=== PATIENT | female | born 1985 ===

== ENCOUNTER 2019-11-06 23:00 | Emergency (ER) | payer SELFPAY ==
[2019-11-06 23:05] VITALS: BP 138/88; PULSE 89; RESP 18; O2SAT 97; BMI 28.0
[2019-11-06] MEDS: diphenhydrAMINE 50 MG/ML VIAL 25 MG IV (23:22)
[2019-11-06] MEDS: methylPREDNISolone 125 MG/2 ML VIAL IV (23:25)
[2019-11-06] MEDS: EPINEPHrine 1 MG/ML 0.5 MG IM (23:26)
[2019-11-06] MEDS: FAMOTIDINE 20 MG/50 ML PIGGYBACK 200 MG IV (23:30)
[2019-11-06] MEDS: SODIUM CHLORIDE 0.9% 1,000 ML 1000 ML IV (23:37)
--- NOTE | 2019-11-07 00:20 | ED_ITS ---
HPI - Allergic Reaction General Chief complaint: Allergic Reaction Stated complaint: rash on her torso and neck Time Seen by Provider: 11/06/19 23:02 Source: patient Mode of arrival: Ambulatory Limitations: no limitations History of Present Illness HPI narrative: 34-year-old female nonsmoker with benign medical history presents with her and in the chief complaint of gradually worsening widespread hives most notable on chest, abdomen and back since this afternoon. She denies any swelling of tongue, lips, face or throat. She has no trouble swallowing and no difficulty in breathing. She does not have a strong history of allergic reactions and has never had this type of reaction before. She denies any new new exposures such as food, lotion, soap, pets, bending versus other. She did not take any medications home MD complaint: allergic reaction and hives Onset (ago): hour(s) Exposure: unknown Symptoms: rash and itching Severity: moderate Treatment prior to arrival: none Previous Allergic Reaction History: none Related Data Previous Rx's Medication Instructions Recorded epinephrine [EpiPen 2-Cuate] 0.3 mg IM Q5-15M PRN #2 each 11/07/19 prednisone 20 mg PO DAILY #5 tab 11/07/19 Allergies Allergy/AdvReac Type Severity Reaction Status Date / Time No Known Drug Allergies Allergy Verified 11/07/19 01:40 Review of Systems Constitutional Constitutional: Denies chills, Denies fatigue, Denies fever(s), Denies frequent falls, Denies lethargy and Denies weakness Eyes Eyes: Denies change in vision, Denies eye discharge, Denies irritation and Denies loss of vision ENT Ears, Nose, Mouth, and Throat: Denies change in voice, Denies dizziness, Denies neck pain, Denies sore throat and Denies throat swelling Cardiovascular Cardiovascular: Denies chest pain, Denies irregular heart rhythm, Denies lightheadedness, Denies palpitations, Denies dyspnea, Denies dyspnea on exertion and Denies orthopnea Respiratory Respiratory: Denies cough, Denies dyspnea, Denies dyspnea on exertion and Denies wheezing Gastrointestinal Gastrointestinal: Denies abdominal pain, Denies change in bowel habits, Denies diarrhea, Denies nausea and Denies vomiting Musculoskeletal Musculoskeletal: Denies neck pain and Denies numbness Integumentary/Breasts Skin/Breast: Reports pruritus, Denies erythema, Reports rash, Reports skin swelling and Denies wounds Neurologic Neurologic: Denies behavioral changes, Denies confusion, Denies dizziness, Denies frequent falls, Denies loss of vision, Denies numbness and Denies weakness Psychiatric Psychiatric: Denies anxiety, Denies behavioral changes, Denies confusion, Denies depression, Denies homicidal ideation and Denies suicidal ideation Endocrine Endocrine: Denies fatigue, Denies flushing and Denies palpitations Hematologic/Lymphatic Hematologic/Lymphatic: Denies easy bruising Allergic/Immunologic Allergic/Immunologic: Reports urticaria, Denies throat swelling and Denies wheezing Patient History Social History Smoking Status: Never smoker Smoking Status: Never smoker Substance Use Type: does not use Exam Narrative Exam Narrative: GENERAL: [34] year old patient appears stated age. Well- nourished, well-developed patient, in mild distress. Anxious HEAD: Atraumatic. Normocephalic. EYES: Pupils equal round and reactive. Extraocular motions intact. No scleral icterus. No injection or drainage. ENT: No tongue, lip, face or throat swelling Nose without bleeding, purulent drainage. Throat without erythema, tonsillar hypertrophy or exudate. Airway patent. NECK: Trachea midline. Non tender CARDIOVASCULAR: Regular rate and rhythm without murmurs, gallops, or rubs. RESPIRATORY: Clear to auscultation. Breath sounds equal bilaterally. No wheezes, rales, or rhonchi. GASTROINTESTINAL: Abdomen soft, non-tender, nondistended. EXTREMITIES: No edema or joint tenderness. BACK: Nontender without deformity or crepitance. No flank tenderness. NEURO: AOx3. SKIN: Widespread urticaria including anterior chest, back, abdomen and extremities Initial Vital Signs Initial Vital Signs: Vital Signs Pulse Rate 89 11/06/19 23:05 Respiratory Rate 18 11/06/19 23:05 Blood Pressure 138/88 11/06/19 23:05 Pulse Oximetry 97 11/06/19 23:05 Course Course Course Narrative: Patient had a near complete resolution of symptoms with above- stated therapies. She did have some intolerance to the epinephrine and got a bit anxious and restless for a few minutes after is administration. That has since resolved Patient continues to have no allergy type symptoms but his developed significant nausea and a headache. She has been given some Toradol and Reglan without much in the way of resolution of her symptoms, due to ongoing vomiting and sudden onset of headache patient is now given Zofran and a head CT ordered Orders Ordered: ED Orders 11/06/19 23:40 EKG-12 Lead Routine 11/07/19 02:46 CT head/brain wo con Stat Discontinued Medications Diphenhydramine HCl (Benadryl) 25 mg IV NOW ONE Stop: 11/06/19 23:18 Last Admin: 11/06/19 23:22 Dose: 25 mg Documented by: DAVIE Epinephrine HCl (Adrenalin) 0.5 mg IM NOW ONE Stop: 11/06/19 23:18 Last Admin: 11/06/19 23:26 Dose: 0.5 mg Documented by: DAVIE Famotidine (Pepcid) 20 mg in 50 mls @ 200 mls/hr IV NOW ONE Stop: 11/06/19 23:31 Last Infusion: 11/06/19 23:50 Dose: 0 mls/hr Documented by: Admin: 11/06/19 23:30 Dose: 200 mls/hr Documented by: PHIL Sodium Chloride (Normal Saline 0.9%) 1,000 mls @ 1,000 mls/hr IV BOLUS ONE Stop: 11/07/19 00:16 Last Infusion: 11/07/19 00:37 Dose: 0 mls/hr Documented by: Admin: 11/06/19 23:37 Dose: 1,000 mls/hr Documented by: MMCFARL Sodium Chloride (Normal Saline 0.9%) 1,000 mls @ 1,000 mls/hr IV BOLUS PRN PRN Reason: Fluid replacement Last Infusion: 11/07/19 02:04 Dose: 0 mls/hr Documented by: Admin: 11/07/19 00:35 Dose: 1,000 mls/hr Documented by: DAVIE Ketorolac Tromethamine (Toradol) 15 mg IV NOW ONE Stop: 11/07/19 01:56 Last Admin: 11/07/19 02:01 Dose: 15 mg Documented by: DAVIE Methylprednisolone (Solu-Medrol 125 Mg Vial) 125 mg IV NOW ONE Stop: 11/06/19 23:18 Last Admin: 11/06/19 23:25 Dose: 125 mg Documented by: MMCFARL Metoclopramide HCl (Reglan) 10 mg IV NOW ONE Stop: 11/07/19 01:57 Last Admin: 11/07/19 02:02 Dose: 10 mg Documented by: CONNORFARL Ondansetron HCl (Zofran) 4 mg IV NOW ONE Stop: 11/07/19 02:47 Last Admin: 11/07/19 02:52 Dose: 4 mg Documented by: PHIL Vital Signs Vital signs: Vital Signs - 8 hr 11/07/19 00:24 11/07/19 01:00 11/07/19 01:30 Pulse Rate 72 74 81 Pulse Rate [Orthostatic Lying] Pulse Rate [Orthostatic Sitting] Pulse Rate [Orthostatic Standing] Respiratory Rate 22 17 16 Blood Pressure Blood Pressure [Left Arm] 95/53 L 91/58 L 100/60 Blood Pressure [Orthostatic Lying] Blood Pressure [Orthostatic Sitting] Blood Pressure [Orthostatic Standing] Pulse Oximetry 97 97 99 11/07/19 01:45 11/07/19 03:00 11/07/19 04:30 Pulse Rate 90 79 75 Pulse Rate [Orthostatic Lying] 79 Pulse Rate [Orthostatic Sitting] 89 Pulse Rate [Orthostatic Standing] 87 Respiratory Rate 21 11 L 14 Blood Pressure 110/56 L Blood Pressure [Left Arm] 119/79 120/81 Blood Pressure [Orthostatic Lying] 98/62 Blood Pressure [Orthostatic Sitting] 99/64 Blood Pressure [Orthostatic Standing] 104/72 Pulse Oximetry 95 96 100 Discharge Plan Departure Patient Disposition: Home Clinical Impression: Urticaria Allergic reaction Qualifiers: Encounter type: initial encounter Qualified Code(s): T78.40XA - Allergy, unspecified, initial encounter Discharge Date/Time: 11/07/19 04:30 Instructions: DI for Hives Activity Restrictions/Additional Instructions: *You have been diagnosed with [allergic reaction with hives to unknown source] *What to do: *Take medications as directed: Take epinephrine and prednisone as directed by the prescription. [id number] antihistamines such as Pepcid can help with itching and skin symptoms as well. Benadryl (diphenhydramine) is highly effective but should be used sparingly if possible while breast-feeding. If your symptoms worsen you will need to take Benadryl, however please note that it can dry your milk supply and with prolonged use it may be passed to her child in breast milk and can have some adverse affects. *Follow up with your primary care provider in 2-3 days, call for an appointment. Let them know you were seen in the Emergency Department and that we ask that you be seen in follow up *Return to ER if you should have any new, worsening or concerning symptoms Prescriptions: New prednisone 20 mg tablet 20 mg PO DAILY Qty: 5 RF: 0 epinephrine [EpiPen 2-Cuate] 0.3 mg/0.3 mL auto-injector 0.3 mg IM Q5-15M PRN (Reason: anaphylaxis) Qty: 2 RF: 0
[2019-11-07 00:24] VITALS: BP 95/53; PULSE 72; RESP 22; O2SAT 97
--- NOTE | 2019-11-07 00:30 | PC.NURSE ---
PT arrives with widespread rash/hives to chest, back, abdomen and bi-lat upper extremities since this afternoon, denies known allergies or cause of symptoms. Speaking in clear sentences, denies difficulty breathing or swallowing, swelling of tongue, lips, face or throat. She has no trouble swallowing and no difficulty in breathing.
[2019-11-07] MEDS: SODIUM CHLORIDE 0.9% 1,000 ML 1000 ML IV (00:35)
[2019-11-07 01:00] VITALS: BP 91/58; PULSE 74; RESP 17; O2SAT 97
[2019-11-07 01:30] VITALS: BP 100/60; PULSE 81; RESP 16; O2SAT 99
[2019-11-07 01:45] VITALS: BP 104/72; BP 119/79; BP 98/62; BP 99/64; PULSE 79; PULSE 87; PULSE 89; PULSE 90; RESP 21; O2SAT 95
[2019-11-07] MEDS: KETOROLAC 60 MG/2 ML VIAL 15 MG IV (02:01)
[2019-11-07] MEDS: METOCLOPRAMIDE 10 MG/2 ML INJ IV (02:02)
--- NOTE | 2019-11-07 02:46 | DI.CT.S_ITS ---
PROCEDURE: CT HEAD/BRAIN WO CON INDICATIONS: severe sudden onset headache, worst ever, vomiting TECHNIQUE: Noncontrast 4.5 mm thick angled axial sections acquired from the foramen magnum to the vertex, with coronal and sagittal reformats. For radiation dose reduction, the following was used: automated exposure control, adjustment of mA and/or kV according to patient size. COMPARISON: None. FINDINGS: Image quality: Excellent. CSF spaces: Basal cisterns are patent. No extra-axial fluid collections. Ventricles are normal in size and shape. Brain: No midline shift. No intracranial masses or hemorrhage. Candelario-white matter interface is normal. Skull and face: Calvarium and visualized facial bones are intact, without suspicious lesions. Sinuses: Visualized sinuses and mastoids are clear. IMPRESSION: No acute intracranial disease process. Dictated by: Winsome Barrera MD, PhD on 11/07/2019 at 7:11 Approved by: Winsome Barrera MD, PhD on 11/07/2019 at 7:13
[2019-11-07] MEDS: ONDANSETRON 4 MG/2 ML INJ IV (02:52)
--- NOTE | 2019-11-07 02:55 | PC.NURSE ---
PT had an episode of vomiting, given 4mg zofran IV ordered.
[2019-11-07 03:00] VITALS: BP 120/81; PULSE 79; RESP 11; O2SAT 96
[2019-11-07 04:30] VITALS: BP 110/56; PULSE 75; RESP 14; O2SAT 100
--- NOTE | 2019-11-07 18:51 | PC.NURSE ---
called the prescription in to [facility] for prednisone that Dr. Mariscal ordered this am. [facility] only had the one prescription for her epi pen. reports that a hard copy of the prednisone was never dispensed to his .
== END 2019-11-07 04:30 | disposition home or self-care (01) ==
PROVIDERS: Emergency Provider Emergency Medicine
DX: T78.40XA Allergy, unspecified, initial encounter (principal); L50.9 Urticaria, unspecified; R07.9 Chest pain, unspecified; R51 Headache
CPT/HCPCS: 36415; 70450; 93005; 96361; 96365; 96372; 96375; 99285; J0171; J1200; J1885; J2405; J2765; J2930

== ENCOUNTER → 2021-08-31 11:38 | Outpatient (CLI) | payer OTHER, SELFPAY ==
[2021-08-31 12:55] LABS: Add Manual Diff / Slide Review NO; Basophils Absolute Auto 100 /uL (0-100); Basophils Percent Auto 0.8 % (0-2); Eosinophils Absolute Auto 100 /uL (0-450); Eosinophils Percent Auto 1.9 % (2-4); Hematocrit 42.4 % (36-46); Hemoglobin 14.4 g/dL (12.0-16.0); Lymphocytes Absolute Auto 2000 /uL (1100-4500); Lymphocytes Percent Auto 32.7 % (25-40); Mean Corpuscular Hemoglobin 27.7 PG (26-34); Mean Corpuscular Volume 81.4 fL (80-100); Monocytes Absolute Auto 400 /uL (0-900); Monocytes Percent Auto 6.1 % (3-14); Neutrophils Absolute Auto 3600 /uL (1500-7000); Neutrophils Percent Auto 58.5 % (50-75); Platelet Count 346 X10^3/uL (150-400); Red Blood Cell Count 5.21 X10^6/uL (4.0-5.2); Red Cell Distribution Width 12.7 % (11.6-14.8); White Blood Cell Count 6.2 X10^3/uL (4.5-11.0)
[2021-08-31 13:16] LABS: Hemoglobin A1C% w Est Avg Glu 5.4 % (4.0-6.0)
[2021-08-31 14:11] LABS: Alanine Aminotransferase 48 IU/L (<35); Albumin 4.6 g/dL (3.5-5.0); Albumin Globulin Ratio 1.5 (1.0-2.8); Alkaline Phosphatase 82 U/L (38-126); Aspartate Aminotransferase 34 IU/L (14-36); BUN Creatinine Ratio 11.5 (6-22); Bilirubin Total 0.5 mg/dL (0.2-1.3); Blood Urea Nitrogen 7 mg/dL (7-17); Calcium 9.2 mg/dL (8.4-10.2); Carbon Dioxide 28 mmol/L (22-32); Chloride 101 mmol/L (98-107); Cholesterol 220 mg/dL (140-199); Estimated Glomerular Filt Rate > 60 mL/min (>60); Glucose 94 mg/dL (70-100); HDL Cholesterol 58 mg/dL (40-60); HEMOLYSIS < 15 (0-50); LDL Cholesterol Calculated 136 mg/dL (<100); Potassium 3.9 mmol/L (3.4-5.1); Sodium 139 mmol/L (137-145); Total Protein 7.6 g/dL (6.3-8.2); Triglycerides 131 mg/dL (35-150)
[2021-08-31 14:34] LABS: TSH w/ Reflex to FT4 1.68 uIU/mL (0.47-4.68)
== END ==
PROVIDERS: PCP Family Medicine; Referring Provider Family Medicine; Visit Provider Family Medicine
DX: E03.9 Hypothyroidism, unspecified (principal); E66.9 Obesity, unspecified
CPT/HCPCS: 36415; 80053; 80061; 83036; 84443; 85025

== ENCOUNTER → 2021-10-19 15:14 | Outpatient (CLI) | payer OTHER, SELFPAY ==
--- NOTE | 2021-10-19 15:15 | DI.US.S_ITS ---
PROCEDURE: US THYROID INDICATIONS: NECK MASS TECHNIQUE: Real-time scanning was performed of the thyroid gland, with image documentation. COMPARISON: None. FINDINGS: Right: Thyroid lobe measures 5.0 x 1.7 x 1.3 cm, and is homogeneous in echotexture. Left: Thyroid lobe measures 7 x 1 x 5.5 x 3.9 cm, and is homogenous in echotexture. Nodule number: 1 Location: Entire left thyroid Size: 7.1 x 5.5 x 3.9 cm. Composition: Solid Echogenicity: Hypoechoic Shape: wider than tall. Margins: Lobulated Echogenic foci: None Total points: 6 ACR TI-RADS category: Moderately suspicious IMPRESSION: Large, moderately suspicious left thyroid nodule. Based on imaging characteristics, size and criteria outlined below ultrasound-guided fine-needle aspiration of the nodule is recommended for additional evaluation. ACR TI-RADS definitions and recommendations: TI-RADS 1 (benign): 0 points. FNA not needed. TI-RADS 2 (not suspicious): 2 points. FNA not needed. TI-RADS 3 (mildly suspicious): 3 points. * FNA if 2.5 cm or larger, follow up if 1.5 cm or larger (at 1, 3, and 5 years). TI-RADS 4 (moderately suspicious): 4-6 points. * FNA if 1.5 cm or larger, follow up if 1 cm or larger (at 1, 2, 3, and 5 years). TI-RADS 5 (highly suspicious): 7 points or more. * FNA if 1 cm or larger, follow up if 0.5 cm or larger (every year for 5 years). Dictated by: Winsome Barrera MD, PhD on 10/19/2021 at 16:31 Approved by: Winsome Barrera MD, PhD on 10/19/2021 at 16:34
== END ==
PROVIDERS: PCP Family Medicine; Referring Provider Family Medicine; Visit Provider Family Medicine
DX: E04.1 Nontoxic single thyroid nodule
CPT/HCPCS: 76536

== ENCOUNTER → 2022-07-11 14:10 | Outpatient (CLI) | payer OTHER, SELFPAY ==
--- NOTE | 2022-07-11 14:11 | DI.US.S_ITS ---
PROCEDURE: US FINE NEEDLE ASPIRATION INDICATIONS: NODULE TECHNIQUE: The indications, alternatives, benefits, risks, and complications of the procedure were explained to the patient. Written informed consent was obtained and placed in the chart. The thyroid region was examined sonographically and a site was chosen for ultrasound guided percutaneous sampling. The skin was prepared and draped in the usual fashion, and anesthetized with 1% lidocaine infiltrated from the skin down to the thyroid gland. Multiple passes were then performed, with contents emptied into an appropriate pathology specimen container. A bandage was applied to the area of access at completion of the study. COMPARISON: [facility], US, US THYROID, 10/19/2021, 16:41. FINDINGS: Location(s) of lesion(s) sampled: Left thyroid mass Cannon: 25 gauge hypodermic needles. Number of passes: 6 Medications: 1% lidocaine for local anaesthesia. Complications: None. IMPRESSION: Successful ultrasound-guided thyroid nodule fine needle aspiration, with cytology results pending. Please see chart below for management recommendations based on cytology results. [facility] ReportingRecommendationsNon-diagnostic* Repeat US-guided FNA, with on-site cytology evaluation if possible. * Repeated non-diagnostic nodules without high suspicion US features: close observation vs surgical consult. * Consider surgery if nodule has high suspicion US features, grows >20% in 2 dimensions on followup, or patient has clinical risk factors for malignancy. Benign* If nodule has high suspicion US features: repeat US and FNA within 12 months. * If nodule has low to intermediate suspicion US features: repeat US at 12-24 months. If nodule grows (20% increase in at least 2 dimensions, with minimal increase of 2 mm or >50% change in volume), or development of new suspicious US features, then repeat FNA or continue followup. * If nodule has very low suspicion US features: followup US at >24 months. Atypia of undetermined significance, follicular lesion of undetermined significanceRepeat FNA, molecular testing, followup US, or surgical consult.Follicular neoplasm, suspicious for follicular neoplasmSurgical consult; also consider molecular testing. Suspicious for malignancySurgical consult.MalignantSurgical consult. Dictated by: Noel Morrow M.D. on 07/11/2022 at 17:11 Approved by: Noel Morrow M.D. on 07/11/2022 at 17:11
== END ==
PROVIDERS: PCP Family Medicine; Referring Provider Family Medicine; Visit Provider Family Medicine
DX: E04.1 Nontoxic single thyroid nodule (principal)
CPT/HCPCS: 10005

== ENCOUNTER → 2024-03-25 09:52 | Outpatient (CLI) | payer OTHER, SELFPAY | PROVIDERS: PCP Family Medicine; Visit Provider Physician Assistant Medical | DX: R30.0 Dysuria (principal); N76.0 Acute vaginitis | CPT/HCPCS: 87086; 87210 ==

== ENCOUNTER → 2024-05-27 09:57 | Outpatient (CLI) | payer OTHER, SELFPAY ==
[2024-05-27 10:19] LABS: Add Manual Diff / Slide Review NO; Basophils Absolute Auto 0 /uL (0-100); Basophils Percent Auto 0.8 % (0-2); Eosinophils Absolute Auto 200 /uL (0-450); Eosinophils Percent Auto 3.7 % (2-4); Hematocrit 42.6 % (36-46); Hemoglobin 13.9 g/dL (12.0-16.0); Lymphocytes Absolute Auto 2400 /uL (1100-4500); Lymphocytes Percent Auto 42.4 % (25-40); Mean Corpuscular HGB Conc 32.7 % (30-36); Mean Corpuscular Hemoglobin 27.3 PG (26-34); Mean Corpuscular Volume 83.5 fL (80-100); Monocytes Absolute Auto 400 /uL (0-900); Monocytes Percent Auto 7.1 % (3-14); Neutrophils Absolute Auto 2600 /uL (1500-7000); Platelet Count 381 X10^3/uL (150-400); White Blood Cell Count 5.7 X10^3/uL (4.5-11.0)
[2024-05-27 11:05] LABS: Alanine Aminotransferase 85 IU/L (<35); Albumin 4.6 g/dL (3.5-5.0); Albumin Globulin Ratio 1.5 (1.0-2.8); Alkaline Phosphatase 93 U/L (38-126); Aspartate Aminotransferase 54 IU/L (14-36); BUN Creatinine Ratio 19.2 (6-22); Bilirubin Total 0.4 mg/dL (0.2-1.3); Blood Urea Nitrogen 14 mg/dL (7-17); Calcium 9.3 mg/dL (8.4-10.2); Carbon Dioxide 28 mmol/L (22-32); Chloride 103 mmol/L (98-107); Cholesterol 279 mg/dL (140-199); Estimated Glomerular Filt Rate > 60 mL/min (>60); Glucose 98 mg/dL (70-100); HDL Cholesterol 72 mg/dL (40-60); HEMOLYSIS < 15 (0-50); LDL Cholesterol Calculated 180 mg/dL (<100); Potassium 3.9 mmol/L (3.4-5.1); Sodium 137 mmol/L (137-145); Total Protein 7.6 g/dL (6.3-8.2); Triglycerides 135 mg/dL (35-150)
[2024-05-27 11:39] LABS: TSH w/ Reflex to FT4 2.61 uIU/mL (0.47-4.68)
[2024-05-28 04:12] LABS: Apolipoprotein B 117 mg/dL (<90)
== END ==
PROVIDERS: PCP Family Medicine; Referring Provider Family Medicine; Visit Provider Family Medicine
DX: E78.5 Hyperlipidemia, unspecified (principal); E66.9 Obesity, unspecified; E03.9 Hypothyroidism, unspecified
CPT/HCPCS: 36415; 80053; 80061; 82172; 84443; 85025

== ENCOUNTER → 2024-05-30 11:40 | Outpatient (CLI) | payer OTHER, SELFPAY | PROVIDERS: PCP Family Medicine; Visit Provider Obstetrics & Gynecology | DX: N89.8 Other specified noninflammatory disorders of vagina (principal) | CPT/HCPCS: 87491; 87563; 87591 ==

== ENCOUNTER → 2024-06-11 15:08 | Outpatient (CLI) | payer OTHER, SELFPAY ==
--- NOTE | 2024-06-11 15:11 | DI.US.S_ITS ---
PROCEDURE: US THYROID INDICATIONS: thyroid mass. prior inconclusive biopsy TECHNIQUE: Real-time scanning was performed of the thyroid gland, with image documentation. COMPARISON: [facility], US, US THYROID, 10/19/2021, 16:41. FINDINGS: Thyroid: Right lobe measures 5.4 x 1.2 x 1.1 cm. Left lobe measures 6.3 x 3.3 x 5.9 cm. Isthmus is 0.3 cm thick. Echotexture of the right lobe is homogeneous. The echotexture of the left lobe is diffusely heterogeneous and macronodular. No suspicious calcifications. IMPRESSION: The left thyroid lobe is enlarged and nodular. No significant change compared to prior. ACR TI-RADS definitions and recommendations: TI-RADS 1 (benign): 0 points. FNA not needed. TI-RADS 2 (not suspicious): 2 points. FNA not needed. TI-RADS 3: 3 points. * FNA if 2.5 cm or larger, follow up if 1.5 cm or larger (at 1, 3, and 5 years). TI-RADS 4: 4-6 points. * FNA if 1.5 cm or larger, follow up if 1 cm or larger (at 1, 2, 3, and 5 years). TI-RADS 5: 7 points or more. * FNA if 1 cm or larger, follow up if 0.5 cm or larger (every year for 5 years). Dictated by: Nat Sparks M.D. on 06/12/2024 at 18:14 Approved by: Nat Sparks M.D. on 06/12/2024 at 18:16
== END ==
LOC: US 15:10
PROVIDERS: PCP Family Medicine; Referring Provider Family Medicine; Visit Provider Family Medicine
DX: E07.9 Disorder of thyroid, unspecified (principal); E03.9 Hypothyroidism, unspecified; E04.9 Nontoxic goiter, unspecified
CPT/HCPCS: 76536

== ENCOUNTER → 2024-06-18 08:23 | Outpatient (CLI) | payer OTHER, SELFPAY ==
--- NOTE | 2024-06-18 08:24 | DI.US.S_ITS ---
PROCEDURE: US ABDOMEN COMPLETE INDICATIONS: ELEVATED LIVER ENZYMES TECHNIQUE: Real-time scanning was performed of the abdominal and retroperitoneal organs, with image documentation. COMPARISON: None. FINDINGS: Liver: The liver demonstrates normal size. The liver demonstrates generalized moderately increased echogenicity. This decreases ultrasound sensitivity for detection of hepatic masses. Gallbladder: No findings of gallstones or sludge are seen. The gallbladder wall is not thickened, measuring 3 mm or less. No specific pericholecystic fluid is seen. The sonographic Toussaint sign is negative. Biliary ducts: Intrahepatic bile ducts are non-dilated. Extrahepatic bile duct caliber measures 4 mm. Normal is 6-7 mm or less in diameter, or 10 mm or less post-cholecystectomy. Pancreas: Visualized portions of the pancreas are sonographically normal. Spleen: Spleen is normal in size and homogeneous in echotexture. Kidneys: Kidneys are normal in size and echotexture. Right kidney measures 10.4 cm long; left kidney measures 9.7 cm long. No hydronephrosis or nephrolithiasis. No solid masses. Aorta: Visualized aorta is normal in caliber at less than 3 cm. Iliacs: Proximal common iliac arteries are normal in caliber at less than 2.5 cm. IVC: Intrahepatic inferior vena cava is patent. Miscellaneous: No free abdominal fluid. IMPRESSION: The liver demonstrates increased echogenicity. This finding is nonspecific, yet it is most commonly attributed to fatty infiltration. Dictated by: Dayday Thomas M.D. on 06/18/2024 at 10:17 Approved by: Dayday Thomas M.D. on 06/18/2024 at 10:18
== END ==
PROVIDERS: PCP Family Medicine; Referring Provider Family Medicine; Visit Provider Family Medicine
DX: E78.2 Mixed hyperlipidemia (principal); R74.8 Abnormal levels of other serum enzymes; L02.91 Cutaneous abscess, unspecified
CPT/HCPCS: 76700; 87070; 87075; 87205

== ENCOUNTER → 2024-06-18 09:50 | Outpatient (CLI) | payer OTHER, SELFPAY | PROVIDERS: PCP Family Medicine; Visit Provider Physician Assistant | DX: L02.91 Cutaneous abscess, unspecified (principal) | CPT/HCPCS: 87070; 87075; 87205 ==

== ENCOUNTER → 2024-07-16 10:10 | Outpatient (CLI) | payer OTHER, SELFPAY ==
--- NOTE | 2024-07-16 | DI.US.S_ITS ---
ULTRASOUND OF RIGHT AXILLA: 07/16/2024 CLINICAL: Rt ax thickening x 5 yrs. Comparison is made to exam dated: 07/16/2024 mammogram - [facility]. Real-time ultrasound of the right axilla was performed. No significant abnormalities were seen sonographically in the right axilla. IMPRESSION: NEGATIVE There is no sonographic evidence of malignancy. There is no abnormality seen in the right axilla to correspond with the area of clinical concern described as thickening by the patient, however, recommend clinical follow up for persistent or worsening symptoms, or development of any clinically suspicious findings. A 1 year screening mammogram is recommended. Findings and recommendations were conveyed to the patient during today's evaluation. This exam was interpreted at Station ID: [id number]. Electronically Signed By: Boom Porter M.D. aty/:07/16/2024 12:13:12 letter sent: Clinical Evaluation ACR BI-RADS Category 1: Negative
--- NOTE | 2024-07-16 10:11 | DI.MG.S_ITS ---
BILATERAL DIGITAL DIAGNOSTIC MAMMOGRAM 3D/2D: 07/16/2024 CLINICAL: Baseline. Pain in the Right breast. No prior exams were available for comparison. The breasts are heterogeneously dense, which may obscure small masses (category c / 51-75% glandular tissue). No significant masses, calcifications, or other findings are seen in either breast. IMPRESSION: INCOMPLETE: NEED ADDITIONAL IMAGING EVALUATION There is no abnormality seen in the right breast or in the right axilla to correspond with the area of clinical concern in the right axilla, however, ultrasound is recommended to further assess reported focal axillary thickening. This will immediately follow this exam. Based on the Tyrer Cuzick model (a risk assessment model) the patient's lifetime risk is 11.1% and her 10 year risk is 1.4%. According to the ACR, ACS, and NCCN guidelines, an annual breast MRI exam along with mammogram is recommended if the patient's lifetime risk is 20% or greater. This exam was interpreted at Station ID: [id number]. NOTE: For mammograms, a report in lay terms will be sent to the patient. Approximately 15% of breast malignancies will not be visualized mammographically. In the management of a palpable breast mass, a negative mammogram must not discourage biopsy of a clinically suspicious lesion. Electronically Signed By: Boom Porter M.D. aty/:07/16/2024 11:01:40 letter sent: Followup Recommended ACR BI-RADS Category 0: Incomplete: Need Additional Imaging Evaluation
== END ==
PROVIDERS: PCP Family Medicine; Referring Provider Family Medicine; Visit Provider Family Medicine
DX: N64.4 Mastodynia (principal); R92.333 Mammographic heterogeneous density, bilateral breasts; R92.2 Inconclusive mammogram
CPT/HCPCS: 76882; 77066; G0279

== ENCOUNTER → 2024-09-11 08:00 | Outpatient (CLI) | payer OTHER, SELFPAY | PROVIDERS: PCP Family Medicine; Referring Provider Family Medicine; Visit Provider Family Medicine | DX: R74.8 Abnormal levels of other serum enzymes (principal); E78.2 Mixed hyperlipidemia | CPT/HCPCS: 36415; 80053; 80061; 80074; 86015; 86038 ==

== ENCOUNTER → 2024-09-23 11:50 | Outpatient (CLI) | payer OTHER, SELFPAY ==
[2024-09-23 13:22] LABS: Appearance Urine UA CLEAR; Bilirubin Urine UA NEGATIVE (NEGATIVE); Color Urine UA YELLOW; Glucose Urine UA NEGATIVE (Negative); Ketones Urine UA NEGATIVE (NEGATIVE); Leukocyte Esterase Urine UA NEGATIVE (NEGATIVE); Nitrite Urine UA NEGATIVE (Negative); Occult Blood Urine UA NEGATIVE (Negative); Protein Urine UA NEGATIVE (Negative); Urobilinogen Urine UA 0.2 E.U./dL (0.2)
[2024-09-23 13:33] LABS: Bacteria Urine Occasional (0-1); Culture Indicated Urine Cult Not Indicated; RBC Urine 0-1/HPF (0-5/HPF); Squamous Epithelial Cell Urine 0-1 /HPF (0-5/HPF); Urine Volume 10mL (spun); WBC Urine 0-1/HPF (0-5/HPF)
== END ==
LOC: LAB 11:51
PROVIDERS: PCP Family Medicine; Visit Provider Obstetrics & Gynecology Gynecology
DX: N32.81 Overactive bladder (principal); N94.10 Unspecified dyspareunia; R39.198 Other difficulties with micturition
CPT/HCPCS: 81001

== ENCOUNTER → 2025-03-04 12:00 | Outpatient (CLI) | payer OTHER, SELFPAY ==
[2025-03-05 16:04] LABS: HIV 1 & 2 Ab/Ag 4th Gen Combo NEGATIVE (NEGATIVE); Hep C Virus Ab w/Reflex Quant NEGATIVE s/c (NEGATIVE)
== END ==
PROVIDERS: PCP Family Medicine; Referring Provider Obstetrics & Gynecology; Visit Provider Obstetrics & Gynecology
DX: Z20.2 Contact with and (suspected) exposure to infections with a predominantly sexual mode of transmission (principal)
CPT/HCPCS: 36415; 86592; 86803; 87389

== ENCOUNTER → 2025-04-20 11:58 | Outpatient (CLI) | payer OTHER, SELFPAY | PROVIDERS: PCP Family Medicine; Visit Provider Obstetrics & Gynecology | DX: N89.8 Other specified noninflammatory disorders of vagina (principal) | CPT/HCPCS: 81514; 87491; 87563; 87591 ==